=== PATIENT | female | born 1935 | race Caucasian/White ===

== ENCOUNTER 2018-10-20 16:09 | Outpatient (CLI) | payer MEDICARE, OTHER ==
--- NOTE | 2018-10-20 16:40 | RAD ---
EXAM: Chest 2 views: HISTORY: Dyspnea COMPARISON: None. FINDINGS: There is a normal-sized cardiomediastinal silhouette. There is no evidence of consolidation, mass, or pleural effusion. Degenerative changes are seen in the spine. IMPRESSION: No evidence of acute cardiopulmonary disease
--- NOTE | 2018-10-20 16:42 | RAD ---
XR Lumbar Spine 2 Or 3 View History: [Low back pain] Comparison: None. Findings: Moderate degenerative scoliosis of the lumbar spine. There are compression fractures of L1 and T12 both containing indwelling cement. There is anterolisthesis, 3 mm, of L4 over L5. Asymmetric right worse than left SI joint degenerative disease. Suture material is present over the l ower pelvis. Impression: Moderate dextroscoliosis thoracolumbar junction with T12 and L1 compression fractures, patricia th having indwelling cemented.
== END 2018-10-20 16:10 | disposition home or self-care (01) ==
LOC: BICRAD 16:09
PROVIDERS: ATTEND Specialist
DX: M54.5 Low back pain (principal); R61 Generalized hyperhidrosis; M48.56XA Collapsed vertebra, not elsewhere classified, lumbar region, initial encounter for fracture; M41.9 Scoliosis, unspecified
CPT/HCPCS: 71046; 72100

== ENCOUNTER 2019-11-27 08:55 | Outpatient (CLI) | payer MEDICARE, OTHER ==
--- NOTE | 2019-11-27 11:20 | MRI ---
THORACIC SPINE MRI WITHOUT CONTRAST: HISTORY: Wedge compression fracture of the thoracic vertebrae. Pain. COMPARISON: 11/18/2018. FINDINGS: Stable vertebroplasty change at L1. Appropriate T1 marrow signal intensity of the thoracic vertebrae. Thoracic spine vertebral body heigh t is maintained. No fracture. Type I Modic changes at the T10-T11 disc space. Appropriate signal intensity of the visualized mediastinum, lung parenchyma, paraspinal muscles, and solid organs. 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 The central spinal canal and neural foramina are patent throughout the thoracic spine. T5-T6: Minimal central disc herniation. No significant central canal stenosis. T7-T8: Minimal central disc herniation. No significant central canal stenosis. T10-T11: Small left paracentral disc herniation. Minimal mass effect upon the left hemicord, unchange d. The thoracic cord has normal size and signal intensity. No cord expansion or cord malacia. Conus medullaris terminates at the inferior aspect of L1. Redemonstration of a L1 compression fracture with associated hypointensity due to previous vertebropl asty. IMPRESSION: No acute thoracic spine fracture. Transcribed Date/Time: 11/27/2019 12:28 PM
--- NOTE | 2019-11-27 11:39 | MRI ---
MR the lumbar spine without contrast INDICATION: 83-year-old female with history of lumbar wedge compression fracture; worsening back pain since February 2019. COMPARISON: MR lumbar spine dated November 18, 2018 TECHNIQUE: Multiplanar multisequence MR images were obtained of lumbar spine without IV contrast. FINDINGS: Bone marrow: There is stable central endplate compression fracture of L1 with associated vertebral pl asty change. No further loss of height is demonstrated. No new wedge compression fracture is evident. There is mild Modic endplate degenerative change at T10-T11 and at the L3-L4 level. Distal spinal cord and conus: Normal. The conus seen to terminate at L1-L2. Visualized retroperitoneum and paraspinal soft tissues: Normal. Vertebral levels: L5-S1: There is stable grade 1 anterolisthesis at L5-S1. There is a broad-based pseudobulge. There is severe facet joint degenerative change. No appreciable central canal or neural foraminal narrowing is demonstrated.. L4-5: There is a broad-based bulge with facet joint degenerative change. There is grade 1 anterolisth esis. The loss of disc space height in addition to the anterolisthesis, facet hypertrophy and pseudobulge at L4-5 induces stable mild to moderate right neural foraminal narrowing. L3-4: There is a broad-based bulge with ligamentum flavum hypertrophy and facet degenerative change i nducing mild central canal narrowing with mild bilateral neural foraminal narrowing which is able to the prior exam. L2-3: There is a broad-based bulge with facet hypertrophy but no appreciable central canal or neural foraminal narrowing. L1-L2: No appreciable central canal or neuroforaminal narrowing. T12-L1: No appreciable central canal or neuroforaminal narrowing. At T11-T12, there is no appreciable central canal or neural foraminal narrowing. At T10-T11, there is a left paracentral protrusion causing some mild ventral effacement of the subara chnoid space and ventral spinal cord. This is seen only on the sagittal images. IMPRESSION: 1. Stable spondylosis of the lumbar spine with mild central canal narrowing and mild bilateral neural foraminal narrowing at L3-4. 2. Stable [id number] right neural foraminal narrowing at L4-5. 3. Stable grade 1 anterolisthesis of L4 on L5 and L5 on S1. 4. Stable chronic central endplate compression fracture involving L1 with associated vertebral plasty change. No acute fracture is evident.
== END 2019-11-27 08:56 | disposition home or self-care (01) ==
LOC: BICMRI 08:55
PROVIDERS: ATTEND Specialist
DX: S32.000D Wedge compression fracture of unspecified lumbar vertebra, subsequent encounter for fracture with routine healing (principal); S22.000D Wedge compression fracture of unspecified thoracic vertebra, subsequent encounter for fracture with routine healing; M47.816 Spondylosis without myelopathy or radiculopathy, lumbar region; M48.061 Spinal stenosis, lumbar region without neurogenic claudication; M43.16 Spondylolisthesis, lumbar region
CPT/HCPCS: 72146; 72148

== ENCOUNTER 2020-05-22 12:10 | Outpatient (CLI) | payer MEDICARE, OTHER ==
--- NOTE | 2020-05-22 13:15 | MMO ---
Bilateral MAMMO Bilat Screen [facility]. CLINICAL HISTORY: Patient is 84 years old and is seen for screening. The patient has no family history of breast cancer. The patient has no personal history of cancer. The patient has a history of right OTHER - benign - bx unsure what procedure 10 + years ago. VIEWS: The views performed were: bilateral craniocaudal with tomosynthesis and bilateral mediolateral oblique with tomosynthesis. FILMS COMPARED: The present examination has been compared to prior imaging studies performed at [facility] on 09/25/2014, 12/03/2015 and 01/07/2018. This study has been interpreted with the assistance of computer-aided detection. MAMMOGRAM FINDINGS: The breasts are heterogeneously dense, which could obscure a lesion on mammography. There are stable benign appearing calcifications seen in both breasts. There are also vascular calcifications. There are no suspicious masses, suspicious calcifications, or new areas of architectural distortion. IMPRESSION: THERE IS NO MAMMOGRAPHIC EVIDENCE OF MALIGNANCY. A ROUTINE FOLLOW-UP MAMMOGRAM IN 1 YEAR IS RECOMMENDED. THE RESULTS OF THIS EXAM WERE SENT TO THE PATIENT. ACR BI-RADS Category 2 - Benign finding MAMMOGRAPHY NOTE: 1. A negative mammogram report should not delay a biopsy if a dominant of clinically suspicious mass is present. 2. Approximately 10% to 15% of breast cancers are not detected by mammography. 3. Adenosis and dense breasts may obscure an underlying neoplasm. Reported by: EMA BOO MD Electonically Signed: [id number]
== END 2020-05-22 12:11 | disposition home or self-care (01) ==
LOC: BICMAMMO 12:10
PROVIDERS: ATTEND Specialist
DX: Z12.31 Encounter for screening mammogram for malignant neoplasm of breast (principal)
CPT/HCPCS: 77063; 77067

== ENCOUNTER 2020-08-21 14:23 | Outpatient (CLI) | payer MEDICARE, OTHER | END 2020-08-21 14:24 | disposition home or self-care (01) | LOC: BICRAD 14:23 | PROVIDERS: ATTEND Specialist | DX: M25.561 Pain in right knee (principal); M25.562 Pain in left knee ==

== ENCOUNTER 2021-12-15 12:23 | Outpatient (CLI) | payer MEDICARE | END 2021-12-15 12:24 | disposition home or self-care (01) | LOC: BICMAMMO 12:23 | PROVIDERS: ATTEND Specialist | DX: Z12.31 Encounter for screening mammogram for malignant neoplasm of breast (principal); Z80.3 Family history of malignant neoplasm of breast; Z91.89 Other specified personal risk factors, not elsewhere classified | CPT/HCPCS: 77063; 77067 ==

== ENCOUNTER 2021-12-25 14:50 | Outpatient (CLI) | payer MEDICARE | END 2021-12-25 14:51 | disposition home or self-care (01) | LOC: BICRAD 14:50 | PROVIDERS: ATTEND Nurse Practitioner Family | DX: M47.815 Spondylosis without myelopathy or radiculopathy, thoracolumbar region (principal); M47.814 Spondylosis without myelopathy or radiculopathy, thoracic region; M85.88 Other specified disorders of bone density and structure, other site; M47.816 Spondylosis without myelopathy or radiculopathy, lumbar region; M41.9 Scoliosis, unspecified; S22.089A Unspecified fracture of T11-T12 vertebra, initial encounter for closed fracture; S32.019A Unspecified fracture of first lumbar vertebra, initial encounter for closed fracture; Z98.890 Other specified postprocedural states | CPT/HCPCS: 72072; 72100 ==

== ENCOUNTER 2023-02-17 10:43 | Outpatient (CLI) | payer MEDICARE | END 2023-02-17 10:44 | disposition home or self-care (01) | LOC: BICMAMMO 10:43 | PROVIDERS: ATTEND Specialist | DX: Z12.31 Encounter for screening mammogram for malignant neoplasm of breast (principal); Z80.3 Family history of malignant neoplasm of breast | CPT/HCPCS: 77063; 77067 ==

== ENCOUNTER 2025-05-11 09:31 | Outpatient (CLI) | payer MEDICARE ==
[2025-05-11 10:37] LABS: Estimated GFR - POC 61.0
== END 2025-05-11 09:32 | disposition home or self-care (01) ==
LOC: SCSMRI 09:31
PROVIDERS: ATTEND Specialist
DX: R41.82 Altered mental status, unspecified (principal); G31.9 Degenerative disease of nervous system, unspecified; I67.82 Cerebral ischemia; I73.9 Peripheral vascular disease, unspecified
CPT/HCPCS: 36415; 70553; 76376; 82565